=== PATIENT | female | born 1960 | race African-American/Black ===

== ENCOUNTER 2025-07-18 08:41 | Outpatient (CLI) | payer OTHER ==
[2025-07-18 09:28] LABS: Hematocrit 40.4 % (34.9-44.5); Hemoglobin 12.9 g/dL (12.0-15.5); Mean Corpuscular Hemoglobin 26.9 pg (27.0-33.0); Mean Corpuscular Volume 84.2 fL (81.6-98.3); Platelet Count 335 10x3/uL (150-450); Red Blood Cell (RBC) Count 4.80 10x6/uL (3.90-5.03); White Blood Cell (WBC) Count 11.70 10x3/uL (3.5-10.5)
== END 2025-07-18 08:42 | disposition home or self-care (01) ==
LOC: CSHLAB 08:41
PROVIDERS: ATTEND Otolaryngology Plastic Surgery within the Head & Neck
DX: Z01.818 Encounter for other preprocedural examination (principal); J34.2 Deviated nasal septum; J34.3 Hypertrophy of nasal turbinates; J32.4 Chronic pansinusitis
CPT/HCPCS: 93005; 93010